=== PATIENT | female | born 2000 | race Caucasian/White ===

== ENCOUNTER 2020-07-14 13:34 | Observation (INO) | payer OTHER ==
[~2020-07-14] VITALS: Ht 175 cm; Wt 79.5 kg
[2020-07-14 14:18] LABS: BASO % 0.6 % (0.0-2.0); EOS # 0.2 (0.0-0.7); EOS % 2.9 % (0-4.0); GRAN # 3.9 (1.4-6.5); GRAN % 71.8 % (42.2-75.2); HEMATOCRIT 38.8 % (37.0-47.0); HEMOGLOBIN 12.9 g/dl (12.5-16.0); LYMPH # 0.9 (1.2-3.4); MEAN CELL VOLUME 91 fl (80.0-100.0); MEAN CORPUSCULAR HEMOGLOBIN 30 pg (27.0-31.0); MEAN CORPUSCULAR HGB CONC 33 g/dl (33.0-37.0); MEAN PLATELET VOLUME 11.8 fl (7.4-10.4); MONO # 0.5 (0.1-0.6); MONO % 8.3 % (1.7-9.3); PLATELET COUNT 239 K/mm3 (130-400); RED BLOOD COUNT 4.28 M/mm3 (4.10-5.30); REDCELL DISTRIBUTION WIDTH-CV 13.2 % (11.5-14.5)
[2020-07-14 14:33] LABS: ALBUMIN 4.3 gm/dL (3.5-5.0); CALCIUM 9.3 mg/dL (8.4-10.2); CREATININE, serum 0.73 (0.52-1.25); TOTAL PROTEIN 7.1 gm/dL (6.4-8.2)
[2020-07-14 16:24] LABS: PH 7 (5-8); SQUAMOUS EPITHELIAL 0-2 /hpf; URINE APPEARANCE Clear; URINE BACTERIA None Seen /hpf; URINE BILIRUBIN Negative (NEGATIVE); URINE BLOOD Negative (NEGATIVE); URINE COLOR Amber; URINE GLUCOSE Negative (NEGATIVE); URINE KETONE Negative (NEGATIVE); URINE LEUKOCYTE ESTERASE Negative (NEGATIVE); URINE NITRATE Negative (NEGATIVE); URINE PROTEIN(semi-quant) Negative (NEGATIVE); URINE RBC 0-2 /hpf; URINE UROBILINOGEN Negative (NEGATIVE); URINE WBC 0-2 /hpf
[2020-07-14 17:38] LABS: COLLECTION METHOD CLEAN CATCH
--- NOTE | 2020-07-14 20:30 | NUR ---
2030 TO 222 FROM ER PER W/C. ORIENTED TO ROOM. ADM ASSESSMENT DONE. STATES IS HAVING NO PAIN AT THIS TIME. CL LIQ DIET TAKEN. 2100 LR 1000CC TO INT SITE PER PUMP AT 125/HR. IVPB TO SITE. WATCHING TV WITH NO COMPLAINTS.
[2020-07-14 21:00] VITALS: BP 119/73; PULSE 90; TEMP 99.1
[2020-07-15] VITALS (11 sets, daily range): BP systolic 119–139; BP diastolic 58–80; PULSE 68–85; TEMP 98.3–98.8
[2020-07-15 06:24] LABS: BASO % 0.4 % (0.0-2.0); EOS # 0.2 (0.0-0.7); EOS % 3.5 % (0-4.0); GRAN # 2.7 (1.4-6.5); GRAN % 60.4 % (42.2-75.2); HEMOGLOBIN 11.7 g/dl (12.5-16.0); LYMPH # 1.2 (1.2-3.4); LYMPH % 27.3 % (20.0-51.0); MEAN CELL VOLUME 92 fl (80.0-100.0); MEAN CORPUSCULAR HEMOGLOBIN 30 pg (27.0-31.0); MEAN CORPUSCULAR HGB CONC 33 g/dl (33.0-37.0); MEAN PLATELET VOLUME 11.4 fl (7.4-10.4); MONO # 0.4 (0.1-0.6); PLATELET COUNT 184 K/mm3 (130-400); RED BLOOD COUNT 3.89 M/mm3 (4.10-5.30); REDCELL DISTRIBUTION WIDTH-CV 13.3 % (11.5-14.5)
[2020-07-15 06:36] LABS: HEMATOCRIT 35.6 % (37.0-47.0)
[2020-07-15 06:40] LABS: ALBUMIN 3.6 gm/dL (3.5-5.0); BILIRUBIN,TOTAL 1.4 mg/dL (0.0-1.0); CALCIUM 8.9 mg/dL (8.4-10.2); CREATININE, serum 0.64 (0.52-1.25); POTASSIUM 4.2 mmol/L (3.4-5.0)
--- NOTE | 2020-07-15 15:45 | NUR ---
Pt taken off unit via bed to OR, accompanied by 2 PACU RNs.
[2020-07-15] MEDS ORDERED: MOTRIN 200200 MG/TAB PO (15:48)
--- NOTE | 2020-07-15 19:00 | NUR ---
To room via bed from PACU. Awake, oriented, winces with movement, states "it hurts so much I don't want to move." 4 lap incisions clean dry and intact.
--- NOTE | 2020-07-15 21:00 | NUR ---
bandaid to R upper lap site with blood drainage out bottom of bandaid. Site cleaned, 2x2 and tegaderm dressing applied. Pt continues to report discomfort. Suggested position changes.
[2020-07-16 01:30] VITALS: BP 133/83; PULSE 62; TEMP 98.8
[2020-07-16 04:45] VITALS: BP 123/73; PULSE 76
[2020-07-16 07:00] VITALS: BP 136/69; PULSE 93; TEMP 98.3
[2020-07-16] MEDS ORDERED: NORCO 325 MG-51 TAB PO (07:53)
--- NOTE | 2020-07-16 09:59 | NUR ---
Initial visit attempt; Patient indisposed, [facility] left card letting patient know of the availability of spiritual care at our hospital.
== END 2020-07-16 08:45 | disposition home or self-care (01) ==
LOC: COL.ER 13:34 → OB 18:02
PROVIDERS: Nurse Practitioner Primary Care; ADMIT Surgery
DX: K80.00 Calculus of gallbladder with acute cholecystitis without obstruction (principal); G43.909 Migraine, unspecified, not intractable, without status migrainosus; K21.9 Gastro-esophageal reflux disease without esophagitis; F17.290 Nicotine dependence, other tobacco product, uncomplicated; Z91.040 Latex allergy status
CPT/HCPCS: G0378; J0690; J1100; J1170; J1885; J1956; J2250; J2270; J2405; J2543; J2550; J2704; J2710; J3010; J7030; J7120; Q9967

== ENCOUNTER 2022-01-28 16:43 | Emergency (ER) | payer OTHER ==
[~2022-01-28] VITALS: Ht 162.6 cm; Wt 90.9 kg
[~2022-01-28 16:43] MED LIST: MOTRIN 200200 MG/TAB PO; NORCO 325 MG-51 TAB PO
[2022-01-28 17:14] VITALS: TEMP 98.5
[2022-01-28 19:02] LABS: BASO % 0.2 % (0.0-2.0); EOS # 0.2 K/mm3 (0.0-0.7); EOS % 2.7 % (0.0-4.0); GRAN # 5.6 K/mm3 (1.4-6.5); GRAN % 65.4 % (42.2-75.2); HEMATOCRIT 40.1 % (37.0-47.0); HEMOGLOBIN 13.5 g/dl (12.5-16.0); LYMPH # 2.1 K/mm3 (1.2-3.4); LYMPH % 24.7 % (20.0-51.0); MEAN CELL VOLUME 89 fl (80.0-100.0); MEAN CORPUSCULAR HEMOGLOBIN 30 pg (27-31); MEAN CORPUSCULAR HGB CONC 34 g/dl (33.0-37.0); MEAN PLATELET VOLUME 11.6 fl (7.4-10.4); MONO # 0.6 K/mm3 (0.1-0.6); MONO % 6.7 % (1.7-9.3); PLATELET COUNT 270 K/mm3 (130-400); RED BLOOD COUNT 4.49 M/mm3 (4.10-5.30); REDCELL DISTRIBUTION WIDTH-CV 12.2 % (11.5-14.5)
[2022-01-28 19:06] LABS: COLLECTION METHOD CLEAN CATCH
[2022-01-28 19:15] LABS: PH 5.5 (5.0-8.5); URINE APPEARANCE Cloudy (CLEAR/HAZY); URINE BLOOD Negative (NEGATIVE); URINE COLOR Yellow (YELLOW); URINE GLUCOSE Negative (NEGATIVE); URINE KETONE Negative (NEGATIVE); URINE NITRATE Negative (NEGATIVE); URINE PROTEIN(semi-quant) Negative (NEGATIVE); URINE UROBILINOGEN 0.2 E.U/dL (0.2-1.0)
[2022-01-28 19:19] LABS: MUCOUS Present (NOT PRESENT); SQUAMOUS EPITHELIAL 0-2 /hpf (0-10); URINE BACTERIA None Seen /hpf (NONE SEEN); URINE RBC 0-2 /hpf (0-2)
[2022-01-28 19:24] LABS: ALBUMIN 4.1 gm/dL (3.5-5.0); BILIRUBIN,TOTAL 0.3 mg/dL (0.2-1.2); CALCIUM 9.4 mg/dL (8.4-10.2); CREATININE, serum 0.8 mg/dL (0.57-1.11); POTASSIUM 3.9 mmol/L (3.5-4.5); TOTAL PROTEIN 7.2 gm/dL (6.2-8.1)
[2022-01-28] MEDS ORDERED: MACROBID 1100 MG/CAP PO (19:54)
[2022-01-28 20:14] VITALS: BP 124/78; PULSE 76
== END 2022-01-28 20:14 | disposition home or self-care (01) ==
LOC: COL.ER 16:43
PROVIDERS: Nurse Practitioner Primary Care
DX: R10.31 Right lower quadrant pain (principal); R10.32 Left lower quadrant pain; N93.9 Abnormal uterine and vaginal bleeding, unspecified; Z32.02 Encounter for pregnancy test, result negative; F17.290 Nicotine dependence, other tobacco product, uncomplicated; Z91.040 Latex allergy status; Z28.310 Unvaccinated for COVID-19
CPT/HCPCS: J1200; J1885